=== PATIENT | female | born 1980 ===

== ENCOUNTER 2021-09-13 10:02 | Emergency (ER) | payer MEDICAID ==
[~2021-09-13] VITALS: Ht 172.7 cm; Wt 62.0 kg
[2021-09-13 11:44] VITALS: BP 106/69
--- NOTE | 2021-09-13 12:32 | NUR ---
CALLED [facility] FOR PT TRANSPORT, THEY ARE NOT AVAILABLE FOR TRANSPORT TODAY. WILL CALL [facility] FOR TRANSPORT
--- NOTE | 2021-09-13 13:01 | NUR ---
Call to [facility], spoke with multiple staff, transport team is returning to their office shortly and staff will let them know that the patient is ready to be picked up. Said they would call with an ETA when they knew.
--- NOTE | 2021-09-13 13:36 | NUR ---
Patient sleeping on left side. No distress observed. Continue to monitor.
--- NOTE | 2021-09-13 13:39 | NUR ---
RN adjusting patient's head of bed. Patient awake. Gave patient juice and a sandwich. No distress observed. Continue to monitor.
== END 2021-09-13 15:18 | disposition home or self-care (01) ==
LOC: ER 10:03
DX: F43.20 Adjustment disorder, unspecified (principal); J45.909 Unspecified asthma, uncomplicated; F17.200 Nicotine dependence, unspecified, uncomplicated
CPT/HCPCS: 99284